=== PATIENT | female | born 1990 | race Caucasian/White ===

== ENCOUNTER 2018-02-08 16:22 | Inpatient (IN) | payer OTHER ==
[2018-02-08] MEDS ORDERED: Nalbuphine 20 MG/1 ML Amp IVPUSH PRN (17:03)
[2018-02-08] MEDS ORDERED: Ondansetron 4 MG/2 ML SDV IVPUSH PRN (17:03)
[2018-02-08] MEDS ORDERED: Sodium Chloride 0.9% 10 ML Syringe FLUSH PRN (17:03)
[2018-02-08] MEDS ORDERED: Ampicillin 2 GM in Sodium Chloride 0.9% 100 ML IV ONE (17:03)
--- NOTE | 2018-02-08 17:11 | PCM.LDHP ---
L&D History of Present Illness - General Date of Service: 02/08/18 Admit Problem/Dx: Patient Status Order with Admit Dx/Problem 02/08/18 17:03 Patient Status [ADT] Routine Admission Diagnosis/Problem Admission Diagnosis/Problem Normal Source of Information: Patient History Limitations: Reports: No Limitations - History of Present Illness Introduction:: Patient is a 27 y/o at 40 0/7 wks gestation who presents from clinic due to findings of mild range BP. Feeling well. No headaches, vision changes, RUQ pain. No other concerns. - Related Data Allergies/Adverse Reactions: Allergies Allergy/AdvReac Type Severity Reaction Status Date / Time No Known Allergies Allergy Verified 07/08/14 21:50 Home Medications: Home Meds 18/Iron/Folic/Dss/Dha [Preque 10] 1 each PO 07/08/14 [History] Acetaminophen [Tylenol] 650 mg PO Q6H PRN #40 tablet 07/10/14 [Rx] Past Medical History [employer] History: Reports: : 2 Para: 1 LMP (Approximate): - Past Surgical History HEENT Surgical History: Reports: Oral Surgery Social & Family History - Tobacco Use Smoking Status *Q: Former Smoker Years of Tobacco use: 1 Used Tobacco, but Quit: Yes Month/Year Tobacco Last Used: November Hand Smoke Exposure: No - Alcohol Use Alcohol Use History: No Days Per Week of Alcohol Use: 0 - Recreational Drug Use Recreational Drug Use: No H&P Review of Systems - Review of Systems: Review Of Systems: See Below General: Reports: No Symptoms Pulmonary: Reports: No Symptoms Cardiovascular: Reports: No Symptoms Gastrointestinal: Reports: No Symptoms Genitourinary: Reports: No Symptoms Musculoskeletal: Reports: No Symptoms Psychiatric: Reports: No Symptoms L&D Exam - Exam Exam: See Below - OB Specific Contraction Intensity: Irritability Movement: Active Heart Tones: Present Heart Tones per Min: 140 Heart Rate (FHR) Variability: Moderate (6-25 bmp) Presentation: Vertex - Bonds Score Bonds Score Cervix Position: Posterior Bonds Score Consistency: Soft Bonds Score Effacement: 51-70% Bonds Score Dilation: 1-2 cm Bonds Score 's Station: -2 Bonds Score Total: 6 - Exam General: Alert, Oriented, Cooperative Lungs: Clear to Auscultation, Normal Respiratory Effort Cardiovascular: Regular Rate, Regular Rhythm GI/Abdominal Exam: Soft, Non-Tender Genitourinary: Normal external exam Extremities: Normal Inspection - Patient Data Lab Results Last 24 hrs: Laboratory Results - last 24 hr 02/08/18 Range/Units 16:55 WBC 12.51 H (3.98-10.04) K/mm3 RBC 4.60 (3.98-5.22) M/mm3 Hgb 12.7 (11.2-15.7) gm/L Hct 39.2 (34.1-44.9) % MCV 85.2 (79.4-94.8) fl MCH 27.6 (25.6-32.2) pg MCHC 32.4 (32.2-35.5) g/dl RDW Std Deviation 47.9 H (36.4-46.3) fL Plt Count 201 (182-369) K/mm3 MPV 12.4 H (9.4-12.3) fl Result Diagrams: 02/08/18 16:55 02/08/18 16:55 - Problem List (1) 40 weeks gestation of SNOMED Code(s): 67214350 ICD Code: Z3A.40 - 40 WEEKS GESTATION OF Status: Acute Current Visit: Yes (2) Rh negative state in antepartum period SNOMED Code(s): 248049137 ICD Code: O09.899 - SUPERVISION OF OTHER HIGH RISK PREGNANCIES, UNSP TRIMESTER; Z67.91 - UNSPECIFIED BLOOD TYPE, RH NEGATIVE Status: Acute Current Visit: Yes (3) GBS (group B Streptococcus carrier), +RV culture, currently SNOMED Code(s): 8470799767395, 915254476, 6055468068066 ICD Code: O99.820 - STREPTOCOCCUS B CARRIER STATE COMPLICATING Status: Acute Current Visit: Yes (4) Gestational hypertension SNOMED Code(s): 18498881 ICD Code: O13.9 - GESTATIONAL HTN W/O SIGNIFICANT PROTEINURIA, UNSP TRIMESTER Status: Acute Current Visit: Yes Problem List Initiated/Reviewed/Updated: Yes Orders Last 24hrs: Active Orders 24 hr Category Date Time Status Patient Status [ADT] Routine ADT 02/08/18 17:03 Ordered Activity as Tolerated [RC] PFP Care 02/08/18 17:03 Ordered Communication Order [RC] ASDIRECTED Care 02/08/18 17:03 Ordered Communication Order [RC] ASDIRECTED Care 02/08/18 17:03 Ordered Communication Order [RC] ASDIRECTED Care 02/08/18 17:03 Ordered Communication Order [RC] ASDIRECTED Care 02/08/18 17:03 Ordered Heart Tones [RC] ASDIRECTED Care 02/08/18 17:04 Ordered Monitoring [RC] INTERMITTENT Care 02/08/18 17:03 Ordered Notify Provider [RC] ASDIRECTED Care 02/08/18 17:03 Ordered Notify Provider [RC] PRN Care 02/08/18 17:03 Ordered Peripheral IV Care [RC] . DIRECTED Care 02/08/18 17:04 Ordered Up ad Ananya [RC] ASDIRECTED Care 02/08/18 17:03 Ordered Vaginal Exam [RC] ASDIRECTED Care 02/08/18 17:03 Ordered Vital Signs [RC] ASDIRECTED Care 02/08/18 17:03 Ordered Vital Signs [RC] PER UNIT ROUTINE Care 02/08/18 17:03 Ordered Regular Diet [DIET] Diet 02/08/18 Dinner Ordered ALANINE AMINOTRANSFERASE,ALT [CHEM] Routine Lab 02/08/18 16:41 Ordered ASPARTATE AMNIOTRANSFERASE,AST [CHEM] Routine Lab 02/08/18 16:41 Ordered CREATININE W/GFR [CHEM] Routine Lab 02/08/18 16:41 Ordered TYPE AND SCREEN [BBK] Routine Lab 02/08/18 16:41 Ordered Ampicillin 1 gm Med 02/08/18 17:15 Ordered Sodium Chloride 0.9% [Normal Saline] 100 ml IV Q4H Ampicillin 2 gm Med 02/08/18 17:03 Ordered Sodium Chloride 0.9% [Normal Saline] 100 ml IV ONETIME Lactated Ringers [Ringers, Lactated] 1,000 ml Med 02/08/18 17:15 Ordered IV ASDIRECTED Nalbuphine [Nubain] Med 02/08/18 17:03 Ordered 10 mg IVPUSH Q2H PRN Ondansetron [Zofran] Med 02/08/18 17:03 Ordered 4 mg IVPUSH Q4H PRN Oxytocin/Lactated Ringers [Pitocin in LR 10 Units/1,000 Med 02/08/18 17:15 Ordered ML] 10 unit in 1,000 ml IV .CONTINUOUS Oxytocin/Lactated Ringers [Pitocin in LR 10 Units/1,000 Med 02/08/18 17:15 Ordered ML] 10 unit in 1,000 ml IV TITRATE Sodium Chloride 0.9% [Saline Flush] Med 02/08/18 17:03 Ordered 10 ml FLUSH ASDIRECTED PRN Electronic Heart Tones Ext w TOCO [WOMSER] Oth 02/08/18 17:03 Ordered Routine Electronic Heart Tones Internal [WOMSER] Per Unit Oth 02/08/18 17:03 Ordered Routine Peripheral IV Insertion Adult [OM.PC] Routine Oth 02/08/18 17:03 Ordered Resuscitation Status Routine Resus Stat 02/08/18 17:03 Ordered Medication Orders Ampicillin Sodium 2 gm/ Sodium (Chloride) 100 mls @ 200 mls/hr IV ONETIME ONE Stop: 02/08/18 17:32 Ampicillin Sodium 1 gm/ Sodium (Chloride) 100 mls @ 200 mls/hr IV Q4H COLE Lactated Ringer's (Ringers, Lactated) 1,000 mls @ 40 mls/hr IV ASDIRECTED COLE Oxytocin/Lactated Ringer's (Pitocin In Lr 10 Units/1,000 Ml) 10 unit in 1,000 mls @ 12 mls/hr IV TITRATE COLE; Protocol Oxytocin/Lactated Ringer's (Pitocin In Lr 10 Units/1,000 Ml) 10 unit in 1,000 mls @ 500 mls/hr IV .CONTINUOUS COLE Nalbuphine HCl (Nubain) 10 mg IVPUSH Q2H PRN PRN Reason: Pain (moderate 4-6) Ondansetron HCl (Zofran) 4 mg IVPUSH Q4H PRN PRN Reason: Nausea/Vomiting Sodium Chloride (Saline Flush) 10 ml FLUSH ASDIRECTED PRN PRN Reason: Keep Vein Open Assessment/Plan Comment:: 27 y/o at 40 0/7 wks - findings of gestation HTN * CBC, AST, ALT, Creatinine * Serial BP's * GBS positive, will start Ampicillin for prophylaxis * Pitocin to be started. AROM when able * Pain management per patient preference * Anticipate
[2018-02-08] MEDS ORDERED: Oxytocin/Lactated Ringers 10 UNIT/1,000 ML BAG IV SCH ×2 (17:15)
[2018-02-08] MEDS: Lactated Ringers 1,000 ML IV SCH (17:43)
--- NOTE | 2018-02-08 20:50 | PCM.PNLD ---
Labor Progress Note - VS & Meds Vital Signs: Last Vital Signs Temp 37.0 C 02/08/18 16:54 Pulse 76 02/08/18 16:54 Resp 19 02/08/18 16:54 BP 139/87 02/08/18 16:54 Pulse Ox 100 02/08/18 16:54 Active Medications: Current Medications Ampicillin Sodium 1 gm/ Sodium (Chloride) 100 mls @ 200 mls/hr IV Q4H COLE Lactated Ringer's (Ringers, Lactated) 1,000 mls @ 40 mls/hr IV ASDIRECTED COLE Last Admin: 02/08/18 17:43 Dose: 40 mls/hr Oxytocin/Lactated Ringer's (Pitocin In Lr 10 Units/1,000 Ml) 10 unit in 1,000 mls @ 12 mls/hr IV TITRATE COLE; Protocol Oxytocin/Lactated Ringer's (Pitocin In Lr 10 Units/1,000 Ml) 10 unit in 1,000 mls @ 500 mls/hr IV .CONTINUOUS COLE Nalbuphine HCl (Nubain) 10 mg IVPUSH Q2H PRN PRN Reason: Pain (moderate 4-6) Ondansetron HCl (Zofran) 4 mg IVPUSH Q4H PRN PRN Reason: Nausea/Vomiting Sodium Chloride (Saline Flush) 10 ml FLUSH ASDIRECTED PRN PRN Reason: Keep Vein Open Discontinued Medications Ampicillin Sodium 2 gm/ Sodium (Chloride) 100 mls @ 200 mls/hr IV ONETIME ONE Stop: 02/08/18 17:32 Last Admin: 02/08/18 17:43 Dose: 200 mls/hr - Uterine Contractions Uterine Monitoring Mode: External [place] Contraction Intensity: Mild to Moderate Uterine Resting Tone: Soft - Monitoring Monitor Mode: External Ultrasound Heart Rate (FHR) Baseline: 135 Heart Rate (FHR) Variability: Moderate (6-25 bmp) Accelerations: Present, 15x15 Decelerations: Late (isolated) Strip Review: Category II - Vaginal Exam Dilation (cm): 3 Effacement (Percent): 50 Station: -2 Cervical Position: Posterior - Labor Progress (Free Text) Labor Progress: Patient doing well. Received first dose of antibiotics around 1800. Pitocin not yet started. AROM performed with release of scant amount of fluid. Will start pitocin for induction process.
[2018-02-08] MEDS: Ampicillin 1 GM in Sodium Chloride 0.9% 100 ML IV SCH (21:25)
[2018-02-08] MEDS: Acetaminophen 325 MG Tab PO PRN (22:45)
[2018-02-09] MEDS ORDERED: Ondansetron 4 MG/2 ML SDV IVPUSH PRN (00:09)
[2018-02-09] MEDS ORDERED: ePHEDrine 50 MG/ML SDV IVPUSH PRN (00:09)
[2018-02-09] MEDS ORDERED: fentaNYL 100 MCG/2 ML SDV EPIDUR PRN (00:09)
[2018-02-09] MEDS ORDERED: fentaNYL 100 MCG/2 ML SDV ONE (00:09)
[2018-02-09] MEDS ORDERED: Bupivacaine/fentaNYL/NS 100 ML Bag EPIDUR SCH (00:15)
[2018-02-09] MEDS ORDERED: Phenylephrine 1 MG in Sodium Chloride 0.9% 10 ML IV SCH (00:15)
[2018-02-09] MEDS: Lactated Ringers 1,000 ML IV SCH ×2 (00:19→02:00)
--- NOTE | 2018-02-09 00:25 | PCM.PREANE ---
Preanesthetic Assessment - Anesthesia/Transfusion/Family Hx Anesthesia History: Prior Anesthesia Without Reaction Family History of Anesthesia Reaction: No Transfusion History: No Prior Transfusion(s) Intubation History: Unknown - Review of Systems General: No Symptoms Pulmonary: No Symptoms Cardiovascular: No Symptoms Gastrointestinal: No Symptoms (GERD with ) Neurological: No Symptoms - Physical Assessment NPO Status Date: 02/08/18 NPO Status Time: 19:00 Pulse: 76 O2 Sat by Pulse Oximetry: 100 Respiratory Rate: 19 Blood Pressure: 139/87 Temperature: 37 C Vital Signs: Last Vital Signs Temp 37.0 C 02/08/18 16:54 Pulse 76 02/08/18 16:54 Resp 19 02/08/18 16:54 BP 139/87 02/08/18 16:54 Pulse Ox 100 02/08/18 16:54 Height: 1.7 m Weight: 104.78 kg ASA Class: 2 Mental Status: Alert & Oriented x3 Airway Class: Mallampati = 2 Dentition: Reports: Normal Dentition, Caries Thyro-Mental Finger Breadths: 3 Mouth Opening Finger Breadths: 3 ROM/Head Extension: Full Lungs: Clear to Auscultation, Normal Respiratory Effort Cardiovascular: Regular Rate, Regular Rhythm, No Murmurs - Lab Values: Laboratory Last Values WBC 12.51 K/mm3 (3.98-10.04) H 02/08/18 16:55 RBC 4.60 M/mm3 (3.98-5.22) 02/08/18 16:55 Hgb 12.7 gm/L (11.2-15.7) 02/08/18 16:55 Hct 39.2 % (34.1-44.9) 02/08/18 16:55 MCV 85.2 fl (79.4-94.8) 02/08/18 16:55 MCH 27.6 pg (25.6-32.2) 02/08/18 16:55 MCHC 32.4 g/dl (32.2-35.5) 02/08/18 16:55 RDW Std Deviation 47.9 fL (36.4-46.3) H 02/08/18 16:55 Plt Count 201 K/mm3 (182-369) 02/08/18 16:55 MPV 12.4 fl (9.4-12.3) H 04/09/18 16:55 Creatinine 0.9 mg/dL (0.55-1.02) 02/08/18 16:55 Est Cr Clr Drug Dosing TNP 02/08/18 16:55 Estimated GFR (MDRD) > 60 mL/min (>60) 02/08/18 16:55 AST 18 U/L (15-37) 02/08/18 16:55 ALT 7 U/L (14-59) L 02/08/18 16:55 Blood Type O NEGATIVE 02/08/18 16:55 Gel Antibody Screen Negative 02/08/18 16:55 Labs reviewed and noted and within acceptable ranges to proceed with epidural. - Allergies Allergies/Adverse Reactions: Allergies Allergy/AdvReac Type Severity Reaction Status Date / Time No Known Allergies Allergy Verified 07/08/14 21:50 - Anesthesia Plan Pre-Op Medication Ordered: None - Acknowledgements Anesthesia Type Planned: Epidural Pt an Appropriate Candidate for the Planned Anesthesia: Yes Alternatives and Risks of Anesthesia Discussed w Pt/Guardian: Yes Pt/Guardian Understands and Agrees with Anesthesia Plan: Yes PreAnesthesia Questionnaire DIRECTOR OF SOCIAL SERVICES History: Reports: - Past Surgical History HEENT Surgical History: Reports: Oral Surgery - SUBSTANCE USE Smoking Status *Q: Former Smoker Second Hand Smoke Exposure: No Days Per Week of Alcohol Use: 0 Recreational Drug Use History: No - HOME MEDS Home Medications: Home Meds 18/Iron/Folic/Dss/Dha [Preque 10] 1 each PO 07/08/14 [History] Acetaminophen [Tylenol] 650 mg PO Q6H PRN #40 tablet 07/10/14 [Rx] - CURRENT (IN HOUSE) MEDS Current Meds: Current Medications Acetaminophen (Tylenol) 650 mg PO Q4H PRN PRN Reason: Pain Last Admin: 02/08/18 22:45 Dose: 650 mg Ephedrine Sulfate (Ephedrine Sulfate) 5 mg IVPUSH ASDIRECTED PRN PRN Reason: Hypotension Fentanyl (Sublimaze) 100 mcg EPIDUR Q3H PRN PRN Reason: Pain Fentanyl/Bupivacaine HCl (Fentanyl/Bupivacaine/Ns 2 Mcg-0.125% 100 Ml) 100 ml EPIDUR ASDIRECTED COLE Ampicillin Sodium 1 gm/ Sodium (Chloride) 100 mls @ 200 mls/hr IV Q4H COLE Last Admin: 02/08/18 21:25 Dose: 200 mls/hr Lactated Ringer's (Ringers, Lactated) 1,000 mls @ 40 mls/hr IV ASDIRECTED COLE Last Admin: 02/09/18 00:19 Dose: 999 mls/hr Oxytocin/Lactated Ringer's (Pitocin In Lr 10 Units/1,000 Ml) 10 unit in 1,000 mls @ 12 mls/hr IV TITRATE COLE; Protocol Last Titration: 02/08/18 22:35 Dose: 4 munits/min, 24 mls/hr Oxytocin/Lactated Ringer's (Pitocin In Lr 10 Units/1,000 Ml) 10 unit in 1,000 mls @ 500 mls/hr IV .CONTINUOUS COLE Phenylephrine HCl 1 mg/ Sodium (Chloride) 10.1 mls @ 1 mls/sec IV TITRATE COLE; Protocol Nalbuphine HCl (Nubain) 10 mg IVPUSH Q2H PRN PRN Reason: Pain (moderate 4-6) Ondansetron HCl (Zofran) 4 mg IVPUSH Q4H PRN PRN Reason: Nausea/Vomiting Ondansetron HCl (Zofran) 4 mg IVPUSH ONETIME PRN PRN Reason: Nausea/Vomiting Sodium Chloride (Saline Flush) 10 ml FLUSH ASDIRECTED PRN PRN Reason: Keep Vein Open Discontinued Medications Fentanyl (Sublimaze) Confirm Administered Dose 100 mcg .ROUTE .STK-MED ONE Stop: 02/09/18 00:10 Ampicillin Sodium 2 gm/ Sodium (Chloride) 100 mls @ 200 mls/hr IV ONETIME ONE Stop: 02/08/18 17:32 Last Admin: 02/08/18 17:43 Dose: 200 mls/hr
[2018-02-09] MEDS: Ampicillin 1 GM in Sodium Chloride 0.9% 100 ML IV SCH ×2 (01:05→05:00)
[2018-02-09] MEDS ORDERED: Bupivacaine 0.25% 10 ML SDV ONE (02:00)
[2018-02-09] MEDS: Acetaminophen 325 MG Tab PO PRN ×3 (03:34→21:30)
[2018-02-09] MEDS ORDERED: Calcium Carbonate 500 MG Tab.Chew PO PRN (04:10)
--- NOTE | 2018-02-09 05:45 | PCM.DEL ---
L & D Note - General Info Date of Service: 02/09/18 - Delivery Note Labor: Induced by ARM, Induced by Oxytocin Delivery Outcome: Livebirth Infant Delivery Method: Spontaneous Vaginal Delivery-Single Infant Delivery Mode: Spontaneous Presentation: Right Occiput Posterior (ROP) Nuchal Cord: None Anesthesia Type: Epidural Amniotic Fluid Description: Clear Episiotomy Type: None Laceration: 2nd Degree Suture type: Vicryl Suture size: 2-0 Placenta: Intact, Spontaneous Cord: 3 Vessels Estimated Blood Loss: 200 Resuscitation Needed: Yes [place]: Bulb Syringe, Stimulated, Warmed, [place] Used Delivery Comments (Free Text/Narrative):: Patient found to be complete and began pushing. With maternal pushing effort over next ~2 hours head delivered from ROP presentation. No nuchal cord present. With gentle downward traction shoulders and body delivered. placed on maternal abdomen. Cord clamped and cut. Cord blood obtained. Placenta allowed time to separate and expelled intact. Inspection of perineum showed 2nd degree laceration repaired with a 2-0 vicryl. - Patient Data Vitals - Most Recent: Last Vital Signs Temp 37 C 02/09/18 00:25 Pulse 76 02/09/18 00:25 Resp 19 02/09/18 00:25 BP 139/87 02/09/18 00:25 Pulse Ox 100 02/09/18 00:25 Weight - Most Recent: 104.78 kg I&O - Last 24 Hours: Intake & Output 02/08/18 02/08/18 02/09/18 14:59 22:59 06:59 Intake Total 100 Output Total 325 Balance 100 -325 Lab Results Last 24 Hours: Laboratory Results - last 24 hr 02/08/18 02/08/18 02/08/18 Range/Units 16:55 16:55 16:55 WBC 12.51 H (3.98-10.04) K/mm3 RBC 4.60 (3.98-5.22) M/mm3 Hgb 12.7 (11.2-15.7) gm/L Hct 39.2 (34.1-44.9) % MCV 85.2 (79.4-94.8) fl MCH 27.6 (25.6-32.2) pg MCHC 32.4 (32.2-35.5) g/dl RDW Std Deviation 47.9 H (36.4-46.3) fL Plt Count 201 (182-369) K/mm3 MPV 12.4 H (9.4-12.3) fl Creatinine 0.9 (0.55-1.02) mg/dL Est Cr Clr Drug Dosing TNP Estimated GFR (MDRD) > 60 (>60) mL/min AST 18 (15-37) U/L ALT 7 L (14-59) U/L Blood Type O NEGATIVE Gel Antibody Screen Negative Med Orders - Current: Current Medications Acetaminophen (Tylenol) 650 mg PO Q4H PRN PRN Reason: Pain Last Admin: 02/09/18 03:34 Dose: 650 mg Calcium Carbonate/Glycine (Tums) 1,000 mg PO Q2H PRN PRN Reason: Indigestion Last Admin: 02/09/18 04:27 Dose: 1,000 mg Ephedrine Sulfate (Ephedrine Sulfate) 5 mg IVPUSH ASDIRECTED PRN PRN Reason: Hypotension Fentanyl (Sublimaze) 100 mcg EPIDUR Q3H PRN PRN Reason: Pain Fentanyl/Bupivacaine HCl (Fentanyl/Bupivacaine/Ns 2 Mcg-0.125% 100 Ml) 100 ml EPIDUR ASDIRECTED COLE Last Admin: 02/09/18 00:25 Dose: 100 ml Ampicillin Sodium 1 gm/ Sodium (Chloride) 100 mls @ 200 mls/hr IV Q4H COLE Last Admin: 02/09/18 05:00 Dose: 200 mls/hr Lactated Ringer's (Ringers, Lactated) 1,000 mls @ 40 mls/hr IV ASDIRECTED COLE Last Admin: 02/09/18 02:00 Dose: 500 mls/hr Oxytocin/Lactated Ringer's (Pitocin In Lr 10 Units/1,000 Ml) 10 unit in 1,000 mls @ 12 mls/hr IV TITRATE COLE; Protocol Last Titration: 02/09/18 04:15 Dose: 9 munits/min, 54 mls/hr Oxytocin/Lactated Ringer's (Pitocin In Lr 10 Units/1,000 Ml) 10 unit in 1,000 mls @ 500 mls/hr IV .CONTINUOUS COLE Phenylephrine HCl 1 mg/ Sodium (Chloride) 10.1 mls @ 1 mls/sec IV TITRATE COLE; Protocol Nalbuphine HCl (Nubain) 10 mg IVPUSH Q2H PRN PRN Reason: Pain (moderate 4-6) Ondansetron HCl (Zofran) 4 mg IVPUSH Q4H PRN PRN Reason: Nausea/Vomiting Ondansetron HCl (Zofran) 4 mg IVPUSH ONETIME PRN PRN Reason: Nausea/Vomiting Sodium Chloride (Saline Flush) 10 ml FLUSH ASDIRECTED PRN PRN Reason: Keep Vein Open Discontinued Medications Fentanyl (Sublimaze) Confirm Administered Dose 100 mcg .ROUTE .STK-MED ONE Stop: 02/09/18 00:10 Last Admin: 02/09/18 00:26 Dose: 100 mcg Ampicillin Sodium 2 gm/ Sodium (Chloride) 100 mls @ 200 mls/hr IV ONETIME ONE Stop: 02/08/18 17:32 Last Admin: 02/08/18 17:43 Dose: 200 mls/hr - Problem List & Annotations (1) 40 weeks gestation of SNOMED Code(s): 24970287 Code(s): Z3A.40 - 40 WEEKS GESTATION OF Status: Acute Current Visit: Yes (2) Rh negative state in antepartum period SNOMED Code(s): 377512006 Code(s): O09.899 - SUPERVISION OF OTHER HIGH RISK PREGNANCIES, UNSP TRIMESTER ; Z67.91 - UNSPECIFIED BLOOD TYPE, RH NEGATIVE Status: Acute Current Visit: Yes (3) GBS (group B Streptococcus carrier), +RV culture, currently SNOMED Code(s): 6063677462715, 049730891, 8246598012989 Code(s): O99.820 - STREPTOCOCCUS B CARRIER STATE COMPLICATING Status: Acute Current Visit: Yes (4) Gestational hypertension SNOMED Code(s): 81764539 Code(s): O13.9 - GESTATIONAL HTN W/O SIGNIFICANT PROTEINURIA, UNSP TRIMESTER Status: Acute Current Visit: Yes (5) Vaginal delivery SNOMED Code(s): 935381836 Code(s): O80 - ENCOUNTER FOR FULL-TERM UNCOMPLICATED DELIVERY Status: Acute Current Visit: Yes - Problem List Review Problem List Initiated/Reviewed/Updated: Yes - My Orders Last 24 Hours: My Active Orders 02/08/18 17:03 Patient Status [ADT] Routine Activity as Tolerated [RC] PFP Communication Order [RC] ASDIRECTED Communication Order [RC] ASDIRECTED Communication Order [RC] ASDIRECTED Communication Order [RC] ASDIRECTED Monitoring [RC] INTERMITTENT Notify Provider [RC] ASDIRECTED Notify Provider [RC] PRN Up ad Ananya [RC] ASDIRECTED Vital Signs [RC] ASDIRECTED Nalbuphine [Nubain] 10 mg IVPUSH Q2H PRN Ondansetron [Zofran] 4 mg IVPUSH Q4H PRN Sodium Chloride 0.9% [Saline Flush] 10 ml FLUSH ASDIRECTED PRN Electronic Heart Tones Ext w TOCO [WOMSER] Routine Electronic Heart Tones Internal [WOMSER] Per Unit Routine Peripheral IV Insertion Adult [OM.PC] Routine Resuscitation Status Routine 02/08/18 17:04 Heart Tones [RC] ASDIRECTED 02/08/18 17:15 Lactated Ringers [Ringers, Lactated] 1,000 ml IV ASDIRECTED Oxytocin/Lactated Ringers [Pitocin in LR 10 Units/1,000 ML] 10 unit in 1,000 ml IV .CONTINUOUS Oxytocin/Lactated Ringers [Pitocin in LR 10 Units/1,000 ML] 10 unit in 1,000 ml IV TITRATE 02/08/18 21:00 Ampicillin 1 gm Sodium Chloride 0.9% [Normal Saline] 100 ml IV Q4H 02/08/18 22:38 Acetaminophen [Tylenol] 650 mg PO Q4H PRN 02/08/18 Dinner Regular Diet [DIET] 02/09/18 04:10 Calcium Carbonate [Tums] 1,000 mg PO Q2H PRN - Assessment Assessment:: 27 y/0 G2 now P2002 PPD#0 from at 40 1/7 wks - Plan Plan:: * Close monitoring of BP's * Routine cares * Encourage * Discharge home in 1-2 days
[2018-02-09] MEDS ORDERED: Witch Hazel Medicated Pads 100/Jar TOP PRN (05:56)
[2018-02-09] MEDS ORDERED: Benzocaine/Menthol 20%-0.5% Spray 56 GM Canister TOP PRN (05:56)
[2018-02-09] MEDS ORDERED: Docusate Sodium 100 MG Cap PO PRN (05:56)
[2018-02-09] MEDS ORDERED: Lanolin 100% Cream 7 GM Tube TOP PRN (05:56)
[2018-02-09] MEDS: Ibuprofen 600 MG Tab PO PRN ×2 (08:30→16:59)
--- NOTE | 2018-02-09 10:14 | PCM48HPAN ---
Post Anesthesia Note - EVALUATION WITHIN 48HRS OF ANESTHETIC Vital Signs in Normal Range: Yes Patient Participated in Evaluation: Yes Respiratory Function Stable: Yes Airway Patent: Yes Cardiovascular Function Stable: Yes Hydration Status Stable: Yes Pain Control Satisfactory: Yes Nausea and Vomiting Control Satisfactory: Yes Mental Status Recovered: Yes Pulse Rate: 102 Resp Rate: 18 Temperature: 98.6 F Blood Pressure: 148/83
[2018-02-10] MEDS: Ibuprofen 600 MG Tab PO PRN ×2 (01:20→06:47)
--- NOTE | 2018-02-10 01:50 | PCM.PNPP ---
- General Info Date of Service: 02/10/18 Functional Status: Reports: Pain Controlled, Tolerating Diet, Ambulating, Urinating - Review of Systems General: Reports: No Symptoms Pulmonary: Reports: No Symptoms Cardiovascular: Reports: No Symptoms Gastrointestinal: Reports: No Symptoms Genitourinary: Reports: No Symptoms Musculoskeletal: Reports: No Symptoms - Patient Data Vital Signs - Most Recent: Last Vital Signs Temp 36.5 C 02/10/18 01:01 Pulse 69 02/10/18 01:01 Resp 16 02/10/18 01:01 BP 109/72 02/10/18 01:01 Pulse Ox 99 02/10/18 01:01 Weight - Most Recent: 104.78 kg I&O - Last 24 Hours: Intake & Output 02/09/18 02/09/18 02/10/18 14:59 22:59 06:59 Intake Total 0 0 Balance 0 0 Lab Results - Last 24 Hours: Laboratory Results - last 24 hr 02/09/18 Range/Units 11:20 Blood Type O NEGATIVE Gel Antibody Screen Negative Screen 0 ros/5 flds - neg RhIG Candidate? Yes Rhogam Indicated Yes, baby rh pos H Med Orders - Current: Current Medications Acetaminophen (Tylenol) 650 mg PO Q4H PRN PRN Reason: mild pain or fever Last Admin: 02/09/18 21:30 Dose: 650 mg Benzocaine/Menthol (Dermoplast Pain Relief [place]) 0 gm TOP ASDIRECTED PRN PRN Reason: Perineal Comfort Measure Last Admin: 02/09/18 08:31 Dose: 1 can Docusate Sodium (Colace) 100 mg PO BID PRN PRN Reason: Constipation Last Admin: 02/09/18 08:31 Dose: 100 mg Emollient Ointment (Lansinoh Hpa) 0 gm TOP ASDIRECTED PRN PRN Reason: Sore Nipples Ibuprofen (Motrin) 600 mg PO Q6H PRN PRN Reason: Mild pain or fever Last Admin: 02/10/18 01:20 Dose: 600 mg Witch Oralia (Tucks) 1 pad TOP ASDIRECTED PRN PRN Reason: Hemorrhoid pain Last Admin: 02/09/18 08:31 Dose: 1 jar Discontinued Medications Acetaminophen (Tylenol) 650 mg PO Q4H PRN PRN Reason: Pain Last Admin: 02/09/18 03:34 Dose: 650 mg Bupivacaine HCl (Sensorcaine-Mpf 0.25%) 10 ml .ROUTE .STK-MED ONE Stop: 02/09/18 02:01 Calcium Carbonate/Glycine (Tums) 1,000 mg PO Q2H PRN PRN Reason: Indigestion Last Admin: 02/09/18 04:27 Dose: 1,000 mg Ephedrine Sulfate (Ephedrine Sulfate) 5 mg IVPUSH ASDIRECTED PRN PRN Reason: Hypotension Fentanyl (Sublimaze) 100 mcg EPIDUR Q3H PRN PRN Reason: Pain Fentanyl (Sublimaze) Confirm Administered Dose 100 mcg .ROUTE .STK-MED ONE Stop: 02/09/18 00:10 Last Admin: 02/09/18 00:26 Dose: 100 mcg Fentanyl/Bupivacaine HCl (Fentanyl/Bupivacaine/Ns 2 Mcg-0.125% 100 Ml) 100 ml EPIDUR ASDIRECTED COLE Last Admin: 02/09/18 00:25 Dose: 100 ml Ampicillin Sodium 2 gm/ Sodium (Chloride) 100 mls @ 200 mls/hr IV ONETIME ONE Stop: 02/08/18 17:32 Last Admin: 02/08/18 17:43 Dose: 200 mls/hr Ampicillin Sodium 1 gm/ Sodium (Chloride) 100 mls @ 200 mls/hr IV Q4H COLE Last Admin: 02/09/18 05:00 Dose: 200 mls/hr Lactated Ringer's (Ringers, Lactated) 1,000 mls @ 40 mls/hr IV ASDIRECTED COLE Last Admin: 02/09/18 02:00 Dose: 500 mls/hr Oxytocin/Lactated Ringer's (Pitocin In Lr 10 Units/1,000 Ml) 10 unit in 1,000 mls @ 12 mls/hr IV TITRATE COLE; Protocol Last Titration: 02/09/18 04:15 Dose: 9 munits/min, 54 mls/hr Oxytocin/Lactated Ringer's (Pitocin In Lr 10 Units/1,000 Ml) 10 unit in 1,000 mls @ 500 mls/hr IV .CONTINUOUS COLE Phenylephrine HCl 1 mg/ Sodium (Chloride) 10.1 mls @ 1 mls/sec IV TITRATE COLE; Protocol Nalbuphine HCl (Nubain) 10 mg IVPUSH Q2H PRN PRN Reason: Pain (moderate 4-6) Ondansetron HCl (Zofran) 4 mg IVPUSH Q4H PRN PRN Reason: Nausea/Vomiting Ondansetron HCl (Zofran) 4 mg IVPUSH ONETIME PRN PRN Reason: Nausea/Vomiting Sodium Chloride (Saline Flush) 10 ml FLUSH ASDIRECTED PRN PRN Reason: Keep Vein Open - Infant Interaction Infant Disposition, : in Room with Family Interaction: Holding Infant Infant Feeding: Breastfed Infant; Nursed Well Support Person: Significant Other - Recovery Exam Fundal Tone: Firm Fundal Level: At Umbilicus Fundal Placement: Midline Lochia Amount: Moderate Lochia Color: Rubra/Red Perineum Description: Edematous Bladder Status: Voiding Urinary Elimination: Voided - Exam General: Alert, Oriented, Cooperative GI/Abdominal Exam: Soft, Non-Tender Extremities: Normal Inspection Skin: Warm, Dry, Intact - Problem List & Annotations (1) 40 weeks gestation of SNOMED Code(s): 17423897 Code(s): Z3A.40 - 40 WEEKS GESTATION OF Status: Acute Current Visit: Yes (2) Rh negative state in antepartum period SNOMED Code(s): 822294280 Code(s): O09.899 - SUPERVISION OF OTHER HIGH RISK PREGNANCIES, UNSP TRIMESTER ; Z67.91 - UNSPECIFIED BLOOD TYPE, RH NEGATIVE Status: Acute Current Visit: Yes (3) GBS (group B Streptococcus carrier), +RV culture, currently SNOMED Code(s): 2662936703933, 898544990, 5812979499518 Code(s): O99.820 - STREPTOCOCCUS B CARRIER STATE COMPLICATING Status: Acute Current Visit: Yes (4) Gestational hypertension SNOMED Code(s): 79123991 Code(s): O13.9 - GESTATIONAL HTN W/O SIGNIFICANT PROTEINURIA, UNSP TRIMESTER Status: Acute Current Visit: Yes (5) Vaginal delivery SNOMED Code(s): 398787060 Code(s): O80 - ENCOUNTER FOR FULL-TERM UNCOMPLICATED DELIVERY Status: Acute Current Visit: Yes - Problem List Review Problem List Initiated/Reviewed/Updated: Yes - My Orders Last 24 Hours: My Active Orders 02/09/18 05:56 Activity as Tolerated [RC] PER UNIT ROUTINE Vital Signs [RC] 12,20,04 Acetaminophen [Tylenol] 650 mg PO Q4H PRN Benzocaine/Menthol [Dermoplast Pain Relief [place]] See Dose Instructions TOP ASDIRECTED PRN Docusate Sodium [Colace] 100 mg PO BID PRN Ibuprofen [Motrin] 600 mg PO Q6H PRN Lanolin [Lansinoh HPA] See Dose Instructions TOP ASDIRECTED PRN Witch Oralia [Tucks] 1 pad TOP ASDIRECTED PRN Assess Lochia [WOMSER] Per Unit Routine Assess Uterine Involution [WOMSER] Per Unit Routine Breast Pump [WOMSER] Per Unit Routine Heat Therapy [OM.PC] PRN Ice Therapy [OM.PC] Per Unit Routine Perineal Care [OM.PC] Per Unit Routine Peripheral IV Discontinue [OM.PC] Routine Sitz Bath [OM.PC] Per Unit Routine 02/09/18 Breakfast Regular Diet [DIET] 02/10/18 05:56 Heat Therapy [OM.PC] PRN - Assessment Assessment:: 27 y/0 G2 now P2002 PPD#1 from at 40 1/7 wks - Plan Plan:: * Bp's have been normal to mild range. Will return to clinic in 1-2 weeks for BP check * Routine cares * Encourage * Discharge home today
--- NOTE | 2018-02-10 01:53 | PCM.DCSUM1 ---
Discharge Summary - Discharge Data Discharge Date: 02/10/18 Discharge Disposition: Home, Self-Care 01 Condition: Good - Discharge Diagnosis/Problem(s) (1) 40 weeks gestation of SNOMED Code(s): 85714856 ICD Code: Z3A.40 - 40 WEEKS GESTATION OF Status: Acute Current Visit: Yes (2) Rh negative state in antepartum period SNOMED Code(s): 190869556 ICD Code: O09.899 - SUPERVISION OF OTHER HIGH RISK PREGNANCIES, UNSP TRIMESTER; Z67.91 - UNSPECIFIED BLOOD TYPE, RH NEGATIVE Status: Acute Current Visit: Yes (3) GBS (group B Streptococcus carrier), +RV culture, currently SNOMED Code(s): 9118523820095, 524604965, 0632690547747 ICD Code: O99.820 - STREPTOCOCCUS B CARRIER STATE COMPLICATING Status: Acute Current Visit: Yes (4) Gestational hypertension SNOMED Code(s): 36988710 ICD Code: O13.9 - GESTATIONAL HTN W/O SIGNIFICANT PROTEINURIA, UNSP TRIMESTER Status: Acute Current Visit: Yes Qualifiers: Trimester: third trimester Qualified Code(s): O13.3 - Gestational [ -induced] hypertension without significant proteinuria, third trimester (5) Vaginal delivery SNOMED Code(s): 809181215 ICD Code: O80 - ENCOUNTER FOR FULL-TERM UNCOMPLICATED DELIVERY Status: Acute Current Visit: Yes - Patient Summary/Data Complications: None Consults: None Recommended Follow-up Testing/Procedures: Follow up in 1-2 weeks for BP check and in 6 weeks for check Hospital Course: Patient is a 27 y/o at 40 0/7 wks who presented to clinic with findings of mild range BP's. These continued will on L&D and so induction begun for gestational HTN. This was done with pitocin and AROM. She progressed well to complete dilation and underwent an uncomplicated . See delivery note. she did well and was discharged home on PPD#1 - Patient Instructions Diet: Regular Diet as Tolerated Activity: As Tolerated Activity, Other: Pelvic Rest Driving: May Drive Today Showering/Bathing: May Shower Showering/Bathing, Other: May Bathe Notify Provider of: Fever, Increased Pain, Swelling and Redness, Drainage, Nausea and/or Vomiting - Discharge Plan Home Medications: Home Meds 18/Iron/Folic/Dss/Dha [Preque 10] 1 each PO 07/08/14 [History] Acetaminophen [Tylenol] 650 mg PO Q6H PRN #40 tablet 07/10/14 [Rx] Docusate Sodium [Colace] 100 mg PO BID PRN cap 02/10/18 [Rx] Ibuprofen [IJD: Ibuprofen] 600 mg PO Q6H PRN tablet 02/10/18 [Rx] Referrals: Josselin Sutherland MD [Physician] - (1-2 weeks for BP check 6 weeks for check ) - Discharge Summary/Plan Comment DC Time >30 min.: No - Patient Data Vitals - Most Recent: Last Vital Signs Temp 36.5 C 02/10/18 01:01 Pulse 69 02/10/18 01:01 Resp 16 02/10/18 01:01 BP 109/72 02/10/18 01:01 Pulse Ox 99 02/10/18 01:01 Weight - Most Recent: 104.78 kg I&O - Last 24 hours: Intake & Output 02/09/18 02/09/18 02/10/18 14:59 22:59 06:59 Intake Total 0 0 Balance 0 0 Lab Results - Last 24 hrs: Laboratory Results - last 24 hr 02/09/18 Range/Units 11:20 Blood Type O NEGATIVE Gel Antibody Screen Negative Screen 0 ros/5 flds - neg RhIG Candidate? Yes Rhogam Indicated Yes, baby rh pos H Med Orders - Current: Current Medications Acetaminophen (Tylenol) 650 mg PO Q4H PRN PRN Reason: mild pain or fever Last Admin: 02/09/18 21:30 Dose: 650 mg Benzocaine/Menthol (Dermoplast Pain Relief [place]) 0 gm TOP ASDIRECTED PRN PRN Reason: Perineal Comfort Measure Last Admin: 02/09/18 08:31 Dose: 1 can Docusate Sodium (Colace) 100 mg PO BID PRN PRN Reason: Constipation Last Admin: 02/09/18 08:31 Dose: 100 mg Emollient Ointment (Lansinoh Hpa) 0 gm TOP ASDIRECTED PRN PRN Reason: Sore Nipples Ibuprofen (Motrin) 600 mg PO Q6H PRN PRN Reason: Mild pain or fever Last Admin: 02/10/18 01:20 Dose: 600 mg Witch Oralia (Tucks) 1 pad TOP ASDIRECTED PRN PRN Reason: Hemorrhoid pain Last Admin: 02/09/18 08:31 Dose: 1 jar Discontinued Medications Acetaminophen (Tylenol) 650 mg PO Q4H PRN PRN Reason: Pain Last Admin: 02/09/18 03:34 Dose: 650 mg Bupivacaine HCl (Sensorcaine-Mpf 0.25%) 10 ml .ROUTE .STK-MED ONE Stop: 02/09/18 02:01 Calcium Carbonate/Glycine (Tums) 1,000 mg PO Q2H PRN PRN Reason: Indigestion Last Admin: 02/09/18 04:27 Dose: 1,000 mg Ephedrine Sulfate (Ephedrine Sulfate) 5 mg IVPUSH ASDIRECTED PRN PRN Reason: Hypotension Fentanyl (Sublimaze) 100 mcg EPIDUR Q3H PRN PRN Reason: Pain Fentanyl (Sublimaze) Confirm Administered Dose 100 mcg .ROUTE .STK-MED ONE Stop: 02/09/18 00:10 Last Admin: 02/09/18 00:26 Dose: 100 mcg Fentanyl/Bupivacaine HCl (Fentanyl/Bupivacaine/Ns 2 Mcg-0.125% 100 Ml) 100 ml EPIDUR ASDIRECTED COLE Last Admin: 02/09/18 00:25 Dose: 100 ml Ampicillin Sodium 2 gm/ Sodium (Chloride) 100 mls @ 200 mls/hr IV ONETIME ONE Stop: 02/08/18 17:32 Last Admin: 02/08/18 17:43 Dose: 200 mls/hr Ampicillin Sodium 1 gm/ Sodium (Chloride) 100 mls @ 200 mls/hr IV Q4H COLE Last Admin: 02/09/18 05:00 Dose: 200 mls/hr Lactated Ringer's (Ringers, Lactated) 1,000 mls @ 40 mls/hr IV ASDIRECTED COLE Last Admin: 02/09/18 02:00 Dose: 500 mls/hr Oxytocin/Lactated Ringer's (Pitocin In Lr 10 Units/1,000 Ml) 10 unit in 1,000 mls @ 12 mls/hr IV TITRATE COLE; Protocol Last Titration: 02/09/18 04:15 Dose: 9 munits/min, 54 mls/hr Oxytocin/Lactated Ringer's (Pitocin In Lr 10 Units/1,000 Ml) 10 unit in 1,000 mls @ 500 mls/hr IV .CONTINUOUS COLE Phenylephrine HCl 1 mg/ Sodium (Chloride) 10.1 mls @ 1 mls/sec IV TITRATE COLE; Protocol Nalbuphine HCl (Nubain) 10 mg IVPUSH Q2H PRN PRN Reason: Pain (moderate 4-6) Ondansetron HCl (Zofran) 4 mg IVPUSH Q4H PRN PRN Reason: Nausea/Vomiting Ondansetron HCl (Zofran) 4 mg IVPUSH ONETIME PRN PRN Reason: Nausea/Vomiting Sodium Chloride (Saline Flush) 10 ml FLUSH ASDIRECTED PRN PRN Reason: Keep Vein Open
[2018-02-10 07:19] VITALS: BP 123/95
== END 2018-02-10 08:38 | disposition home or self-care (01) | DRG 775 ==
LOC: JD.OBCHECK 16:22 → JD.OB 16:23 → JD.OBCHECK 17:03 → JD.OB 17:03 → OBSVTOIN 02-09 05:30 → JD.OB 02-09 05:31
PROVIDERS: ADMIT Obstetrics & Gynecology; ATTEND Obstetrics & Gynecology
PROC: 10E0XZZ Delivery of Products of Conception, External Approach (ICD-10-PCS; principal; 2018-02-09)
PROC: 0KQM0ZZ Repair Perineum Muscle, Open Approach (ICD-10-PCS; 2018-02-09)
PROC: 3E0234Z Introduction of Serum, Toxoid and Vaccine into Muscle, Percutaneous Approach (ICD-10-PCS; 2018-02-09)
PROC: 6A550ZT Pheresis of Cord Blood Stem Cells, Single (ICD-10-PCS; 2018-02-09)
PROC: 10907ZC Drainage of Amniotic Fluid, Therapeutic from Products of Conception, Via Natural or Artificial Opening (ICD-10-PCS; 2018-02-09)
PROC: 3E033VJ Introduction of Other Hormone into Peripheral Vein, Percutaneous Approach (ICD-10-PCS; 2018-02-09)
PROC: 00HU33Z Insertion of Infusion Device into Spinal Canal, Percutaneous Approach (ICD-10-PCS; 2018-02-09)
PROC: 3E0R3BZ Introduction of Anesthetic Agent into Spinal Canal, Percutaneous Approach (ICD-10-PCS; 2018-02-09)
DX: O13.4 Gestational [pregnancy-induced] hypertension without significant proteinuria, complicating childbirth (principal); Z37.0 Single live birth; O99.824 Streptococcus B carrier state complicating childbirth; O70.1 Second degree perineal laceration during delivery; Z3A.40 40 weeks gestation of pregnancy; O26.893 Other specified pregnancy related conditions, third trimester; Z67.41 Type O blood, Rh negative
CPT/HCPCS: 36415; 51701; 51702; 59025; 59300; 59409; 82565; 84450; 84460; 85027; 85461; 86850; 86900; 86901; A9270-GY; J0290; J2590; J2790; J3010; J7030; J7120

== ENCOUNTER 2024-03-17 22:25 | Emergency (ER) | payer OTHER ==
[2024-03-17] MEDS: Tetracaine HCl/PF 0.5% 4 ML Bottle EYERT ONE (23:02)
[2024-03-17] MEDS: Fluorescein 1 MG Ophth Strip EYERT ONE (23:02)
[2024-03-17] MEDS: Ofloxacin 0.3% Ophth Soln 5 ML Bottle EYERT ONE (23:20)
[2024-03-17 23:35] VITALS: BP 124/85; PULSE 80
== END 2024-03-17 23:36 | disposition home or self-care (01) ==
LOC: JD.ED 22:25
DX: S05.01XA Injury of conjunctiva and corneal abrasion without foreign body, right eye, initial encounter (principal); Z79.899 Other long term (current) drug therapy; X58.XXXA Exposure to other specified factors, initial encounter
CPT/HCPCS: 99283; A9270-GY; J3490